=== PATIENT | male | born 1970 | race Caucasian/White ===

== ENCOUNTER 2017-02-27 14:11 | Inpatient (IN) | payer BC, OTHER ==
[~2017-02-27] VITALS: Ht 180.3 cm; Wt 130.0 kg
[2017-02-27] MEDS ORDERED: NS 1,000 ML IV ONE ×3 (16:45→23:15)
[2017-02-27 17:31] LABS: VENOUS BASE EXCESS 2.8 (-2.0-2.0); VENOUS PARTIAL PRESSURE CO2 53.4 mmHg (38.0-50.0); VENOUS PARTIAL PRESSURE O2 29.9 mmHg (30.0-50.0); VENOUS STANDARD HCO3 25.6 MEQ/L; VENOUS TOTAL CO2 31.3 MEQ/L (24.0-28.0)
[2017-02-27 17:38] LABS: BASO # 0.1 10^3/uL (0.0-0.2); BASO % 0.9 % (0.0-1.0); EOS # 0.1 10^3/uL (0.0-0.50); EOS % 1.6 % (0.0-3.0); IMMATURE GRANULOCYTE % 0.3 % (0-0); LYMPH # 3.3 10^3/uL (1.5-4.5); LYMPH % 36.2 % (24.0-44.0); MEAN CORPUSCULAR HEMOGLOBIN 29.3 pg (27.0-33.0); MEAN CORPUSCULAR HGB CONC 34.5 g/dl (32.0-36.5); MEAN CORPUSCULAR VOLUME 84.9 fl (80.0-96.0); MONO # 0.5 10^3/uL (0.0-0.8); MONO % 5.5 % (0.0-5.0); NEUTROPHILS % 55.5 % (36.0-66.0); PLATELET COUNT, AUTOMATED 294 10^3/uL (150-450); RED CELL DISTRIBUTION WIDTH 11.8 % (11.5-14.5)
[2017-02-27 17:54] LABS: OSMOLALITY SERUM 308 MOSM/KG (275-295)
[2017-02-27 17:57] LABS: ALBUMIN 3.8 GM/DL (3.2-5.2); ALBUMIN/GLOBULIN RATIO 0.83 (1.00-1.93); ALKALINE PHOSPHATASE 124 U/L (45-117); ALT/SGPT 89 U/L (12-78); ANION GAP 9 MEQ/L (8-16); AST/SGOT 39 U/L (7-37); BILIRUBIN,DIRECT 0.1 MG/DL (0.0-0.2); BILIRUBIN,TOTAL 0.7 MG/DL (0.2-1.0); BLOOD UREA NITROGEN 15 MG/DL (7-18); CARBON DIOXIDE LEVEL 29 MEQ/L (21-32); CHLORIDE LEVEL 92 MEQ/L (98-107); CREATININE FOR GFR 1.28 MG/DL (0.70-1.30); GLOMERULAR FILTRATION RATE > 60.0 (>60); MAGNESIUM LEVEL 1.9 MG/DL (1.8-2.4); POTASSIUM SERUM 4.3 MEQ/L (3.5-5.1); SODIUM LEVEL 130 MEQ/L (136-145); TOTAL PROTEIN 8.4 GM/DL (6.4-8.2)
[2017-02-27 18:12] LABS: GLUCOSE, FASTING 415 MG/DL (70-105)
[2017-02-27] MEDS ORDERED: HumuLIN R (REGULAR) INSULIN (NovoLIN R) **100U/ML** PER UNIT IV ONE (18:30)
--- NOTE | 2017-02-27 18:41 | ECGEPIP ---
Stationary ECG Study [facility] - ED Test Date: 2017-02-27 Pat Name: LOLA NAZARIO Department: Room: - Gender: M [employer] Attendant: tj : 1970 Requested By: Yi Pride Order Number: [id number] Reading MD: Alexis Avila Measurements Intervals [place] Rate: 108 P: 72 IA: 151 QRS: 54 QRSD: 84 T: 45 QT: 307 QTc: 412 Interpretive Statements SINUS TACHYCARDIA POSSIBLE LEFT ATRIAL ENLARGEMENT NO PRIORS FOR COMPARISON Electronically Signed On 02-27-2017 18:41:14 EST by Alexis Avila
[2017-02-27] MEDS ORDERED: INSULIN HUMAN REGULAR 100 UNITS in NS 99 ML IV SCH (19:56)
[2017-02-27] MEDS ORDERED: INSULIN IV RATE CHANGE DOCUMENTATION ML/HR XX SCH (20:00)
[2017-02-27 20:52] LABS: VENOUS BASE EXCESS 0.1 (-2.0-2.0); VENOUS O2 SATURATION 99.2 % (60.0-80.0); VENOUS PARTIAL PRESSURE CO2 43.3 mmHg (38.0-50.0); VENOUS PARTIAL PRESSURE O2 171.5 mmHg (30.0-50.0); VENOUS STANDARD HCO3 24.6 MEQ/L; VENOUS TOTAL CO2 26.7 MEQ/L (24.0-28.0)
[2017-02-27 21:26] LABS: ALBUMIN 3.2 GM/DL (3.2-5.2); ALBUMIN/GLOBULIN RATIO 0.84 (1.00-1.93); ALKALINE PHOSPHATASE 90 U/L (45-117); ALT/SGPT 74 U/L (12-78); ANION GAP 7 MEQ/L (8-16); AST/SGOT 36 U/L (7-37); BILIRUBIN,TOTAL 0.5 MG/DL (0.2-1.0); BLOOD UREA NITROGEN 15 MG/DL (7-18); CALCIUM LEVEL 8.5 MG/DL (8.5-10.1); CARBON DIOXIDE LEVEL 28 MEQ/L (21-32); CHLORIDE LEVEL 101 MEQ/L (98-107); CREATININE FOR GFR 1.06 MG/DL (0.70-1.30); GLOMERULAR FILTRATION RATE > 60.0 (>60); GLUCOSE, FASTING 293 MG/DL (70-105); MAGNESIUM LEVEL 1.8 MG/DL (1.8-2.4); POTASSIUM SERUM 3.9 MEQ/L (3.5-5.1); SODIUM LEVEL 136 MEQ/L (136-145)
[2017-02-28] VITALS (13 sets, daily range): BP systolic 132–178; BP diastolic 67–108
[2017-02-28] MEDS ORDERED: GLUCOSE 4 GM CHEW TABLET PO PRN (00:45)
[2017-02-28] MEDS ORDERED: GLUCAGON FOR INJ 1 MG VIAL (J1610) SC PRN (00:45)
[2017-02-28] MEDS ORDERED: DEXTROSE 50% 50 ML SYRINGE IV PRN (00:45)
[2017-02-28] MEDS ORDERED: INFLUENZA QUADRIVALENT PF VACCINE 0.5ML SYRINGE (90686) IM SCH (01:15)
--- NOTE | 2017-02-28 01:50 | HPE ---
DATE OF ADMISSION: 02/27/2017 The patient, Max Rose III, is a 47-year-old male. Patient comes in with a chief complaint of blurry vision and weakness and headache. HISTORY OF PRESENT ILLNESS: Patient notes for the past couple weeks he has been feeling lightheaded, weaker, thirsty, general feelings of not being well. However, over the weekend he says the condition has worsened to the point where he had blurry vision. Therefore, he came into the emergency department (ED) where he was found to be with an extremely high fasting glucose. The A1c is 11. Patient with newly diagnosed diabetes mellitus. REVIEW OF SYSTEMS: Patient without other acute complaints other than polyurination. ALLERGIES: Patient with allergies to PENICILLIN. Both patient's parents are type 2 diabetics as per patient. Patient is a nonsmoker, non-drinker, does not use drugs as per the patient. Patient's home medications are none as per the patient. PHYSICAL EXAMINATION: Patient is resting comfortably when I came in. Alert and oriented times three with normal affect, normal mood. Cranial nerves II-XII grossly intact. S1, S2. Good inspiratory, expiratory effort. No wheezes, rhonchi or rales. Abdomen is obese, soft, nontender to palpation. Patient with good strength in all four major extremities. ENT is normal with supple neck. Skin is warm and dry. No apparent lymphadenopathy. LABORATORY EXAMINATION: Shows CBC grossly normal. Chemistry, however, shows fasting glucose of 415, chloride 92, sodium 130. Blood gas shows elevated pCO2 of 53.4, pH is 7.362 and a low saturation of 53.0. Followup ABG shows 7.385, pCO2 43.3, pO2 of 171.5, and a saturation 99.2. Urinalysis is negative. Toxicology shows elevated beta-hydroxybutyrate of 4.73. No imaging done on patient, none needed. ASSESSMENT AND PLAN: Patient is a 47-year-old male who comes in with symptoms consistent with newly symptomatic diabetes mellitus. Patient clearly with uncontrolled glucose, high A1c. Patient meeting hyperosmolar nonketotic state. Began intravenous (IV) insulin in the emergency department (ED). Will continue. Continue treatment as necessary. Continue fluid resuscitation. Deep venous thrombosis (DVT) prophylaxis not indicated. Gastrointestinal (GI) prophylaxis not indicated. Given the patient's need for education and glucose monitoring, patient to be admitted for further observation. I first saw patient 02/27/2017.
[2017-02-28 05:38] LABS: BASO # 0.1 10^3/uL (0.0-0.2); EOS # 0.2 10^3/uL (0.0-0.50); EOS % 3.2 % (0.0-3.0); IMMATURE GRANULOCYTE % 0.3 % (0-0); LYMPH # 2.9 10^3/uL (1.5-4.5); LYMPH % 40.8 % (24.0-44.0); MEAN CORPUSCULAR HEMOGLOBIN 29.3 pg (27.0-33.0); MEAN CORPUSCULAR HGB CONC 34.6 g/dl (32.0-36.5); MEAN CORPUSCULAR VOLUME 84.8 fl (80.0-96.0); MONO # 0.4 10^3/uL (0.0-0.8); MONO % 5.5 % (0.0-5.0); NEUTROPHILS # 3.5 10^3/uL (1.8-7.7); NEUTROPHILS % 49.2 % (36.0-66.0); PLATELET COUNT, AUTOMATED 217 10^3/uL (150-450); RED CELL DISTRIBUTION WIDTH 11.8 % (11.5-14.5); WHITE BLOOD COUNT 7.1 10^3/uL (4.0-10.0)
[2017-02-28 05:59] LABS: ALBUMIN/GLOBULIN RATIO 0.79 (1.00-1.93); ALKALINE PHOSPHATASE 77 U/L (45-117); ALT/SGPT 68 U/L (12-78); ANION GAP 12 MEQ/L (8-16); AST/SGOT 34 U/L (7-37); BILIRUBIN,TOTAL 0.5 MG/DL (0.2-1.0); BLOOD UREA NITROGEN 18 MG/DL (7-18); CALCIUM LEVEL 8.5 MG/DL (8.5-10.1); CARBON DIOXIDE LEVEL 23 MEQ/L (21-32); CHLORIDE LEVEL 102 MEQ/L (98-107); CREATININE FOR GFR 1.05 MG/DL (0.70-1.30); GLOMERULAR FILTRATION RATE > 60.0 (>60); GLUCOSE, FASTING 281 MG/DL (70-105); POTASSIUM SERUM 3.6 MEQ/L (3.5-5.1); SODIUM LEVEL 137 MEQ/L (136-145); TOTAL PROTEIN 6.8 GM/DL (6.4-8.2)
[2017-02-28] MEDS ORDERED: INSULIN HUMAN REGULAR 100 UNITS in NS 99 ML IV SCH (09:00)
[2017-02-28] MEDS ORDERED: LISINOPRIL 5 MG TAB PO SCH (09:00)
[2017-02-28] MEDS: PANTOPRAZOLE 40MG TAB (PROTONIX) PO SCH (11:06)
[2017-02-28] MEDS: ACETAMINOPHEN TAB 650MG DOSE (2X325MG) PO PRN ×2 (11:06→18:01)
[2017-02-28] MEDS: metFORMIN (GLUCOPHAGE) 500 MG TAB PO SCH ×2 (11:07→20:51)
--- NOTE | 2017-02-28 11:19 | IPN ---
DATE OF SERVICE: 02/28/2017 SUBJECTIVE: The patient tells me that he is feeling better. He has some mild headache but otherwise be is not urinating as much and not as thirsty. He denies fever, chills, nausea, vomiting or abdominal pain. OBJECTIVE: Vital signs: Temperature 97.9, pulse 85, respiratory rate 16, blood pressure 134/84, oxygen saturation 95% on room air. General: He is a morbidly obese middle aged man lying in bed at a 30 degree angle. He is accompanied by his significant other. He does not appear to be in any acute distress. HEENT: Cranial nerves II-XII grossly intact. He has dry mucous membranes and elevation of CVP. Cardiovascular exam: S1, S2 regular. Respiratory exam: Clear. Abdominal exam: Grossly obese. Extremities: No clubbing, cyanosis or edema. LABORATORY STUDIES: WBC 7.1, hemoglobin 14.1, platelet count 217. Chemistry panel: Sodium 3.6, chloride 102, bicarbonate 23, BUN 18, creatinine 1.0. Fasting glucose 281. Hemoglobin A1c is 11. LFTs have returned to normal. Lipase within normal limits. Toxicology and beta hydroxybutyrate is 4.7 elevated. Urinalysis positive for protein and glucose. ASSESSMENT AND PLAN: This is a 47-year-old man with new onset type 2 diabetes. PROBLEMS: 1. New onset type 2 diabetes. Patient understands the diagnosis, his mother and father both have it. We have initiated consistent carbohydrate diet. I have placed nutrition consult and requested there is extensive complete diabetic teaching. At this time, we will discontinue the drip. He did not have an anion gap. Will place him on metformin 500 mg by mouth twice daily. We will continue to check finger sticks. Should be become uncontrolled with the metformin, could consider initiation of sliding scale insulin. However, at the time, we will simply monitor and educate and see how he does with the metformin and a consistent carbohydrate diet. If he is able to be controlled, he will likely be discharged and followup with a new primary care provider appointment that he has scheduled for next week. 2. Deep venous thrombosis (DVT) prophylaxis. Early ambulation.
[2017-02-28] MEDS: HumaLOG INSULIN (NovoLOG) PER UNIT SC SCH ×2 (12:32→17:14)
[2017-02-28] MEDS ORDERED: LISINOPRIL 5 MG TAB PO ONE (16:15)
[2017-02-28] MEDS ORDERED: HumaLOG INSULIN (NovoLOG) PER UNIT SC SCH (21:00)
[2017-02-28] MEDS ORDERED: CEPACOL LOZENGE PO PRN (22:00)
[2017-03-01 06:00] VITALS: BP 167/98
[2017-03-01 07:21] LABS: BASO # 0.1 10^3/uL (0.0-0.2); BASO % 0.9 % (0.0-1.0); EOS # 0.2 10^3/uL (0.0-0.50); EOS % 3.7 % (0.0-3.0); IMMATURE GRANULOCYTE % 0.5 % (0-0); LYMPH # 2.1 10^3/uL (1.5-4.5); LYMPH % 36.7 % (24.0-44.0); MEAN CORPUSCULAR HEMOGLOBIN 29.6 pg (27.0-33.0); MEAN CORPUSCULAR HGB CONC 34.5 g/dl (32.0-36.5); MEAN CORPUSCULAR VOLUME 85.8 fl (80.0-96.0); MONO # 0.4 10^3/uL (0.0-0.8); MONO % 6.1 % (0.0-5.0); NEUTROPHILS % 52.1 % (36.0-66.0); PLATELET COUNT, AUTOMATED 219 10^3/uL (150-450); RED CELL DISTRIBUTION WIDTH 11.9 % (11.5-14.5); WHITE BLOOD COUNT 5.7 10^3/uL (4.0-10.0)
[2017-03-01] MEDS ORDERED: LANTINJ4 SC (07:38)
[2017-03-01] MEDS ORDERED: D-CA1KIT XX (07:38)
[2017-03-01] MEDS ORDERED: GLUC500T PO (07:38)
[2017-03-01] MEDS ORDERED: LISI10TA4 PO (07:38)
[2017-03-01] MEDS ORDERED: NOVOINJ3 SC (07:40)
[2017-03-01 07:47] LABS: ALBUMIN 3.1 GM/DL (3.2-5.2); ALBUMIN/GLOBULIN RATIO 0.79 (1.00-1.93); ALKALINE PHOSPHATASE 105 U/L (45-117); ALT/SGPT 67 U/L (12-78); ANION GAP 7 MEQ/L (8-16); AST/SGOT 28 U/L (7-37); BILIRUBIN,TOTAL 0.4 MG/DL (0.2-1.0); BLOOD UREA NITROGEN 17 MG/DL (7-18); CALCIUM LEVEL 8.6 MG/DL (8.5-10.1); CARBON DIOXIDE LEVEL 27 MEQ/L (21-32); CHLORIDE LEVEL 102 MEQ/L (98-107); CREATININE FOR GFR 1.05 MG/DL (0.70-1.30); GLOMERULAR FILTRATION RATE > 60.0 (>60); GLUCOSE, FASTING 315 MG/DL (70-105); POTASSIUM SERUM 3.9 MEQ/L (3.5-5.1); SODIUM LEVEL 136 MEQ/L (136-145)
[2017-03-01] MEDS: metFORMIN (GLUCOPHAGE) 500 MG TAB PO SCH (08:30)
[2017-03-01] MEDS: PANTOPRAZOLE 40MG TAB (PROTONIX) PO SCH (08:30)
[2017-03-01] MEDS: HumaLOG INSULIN (NovoLOG) PER UNIT SC SCH (08:30)
[2017-03-01 08:31] VITALS: BP 167/98
[2017-03-01] MEDS ORDERED: LISINOPRIL 10 MG TAB PO SCH (09:00)
[2017-03-01] MEDS ORDERED: HUMA100I5 SC (12:14)
--- NOTE | 2017-03-01 16:35 | DSES ---
DATE OF ADMISSION: 02/27/2017 DATE OF DISCHARGE: 03/01/2017 DISCHARGE DIAGNOSIS: New onset diabetes. SECONDARY DIAGNOSIS: Hyperglycemia, polyuria, polydipsia, hypertension. HOSPITAL COURSE: Patient is a 47-year-old man who presented with polyuria and polydipsia who was found to have hyperglycemia and new onset type 2 diabetes which runs in his family. Both his mother and father have it. He himself has obesity and was in between doctors and was set to have a new primary care physician appointment on March 09. He was admitted to ICU for an insulin drop although he did not an anion gap. His fingersticks did quickly trend downward so he was transitioned to metformin 500 mg by mouth twice a day was not sufficient to control his fingersticks and as such he did require sliding scale insulin. Hemoglobin A1c was noted to be 11. He had a lipase within normal limits. TSH within normal limits. Protein and glucose in his urine. His syndrome did resolve with control of his blood sugar. SUBJECTIVE: This morning the patient tells me that his blurry vision has improved. He is not as thirsty. He is not having as much urine output and less urination and he feels well and would like to go home. OBJECTIVE: VITAL SIGNS: Temperature 98, pulse 196, respiratory rate 20, blood pressure 167/98, oxygen saturation 98% on room air. GENERAL: He is a morbidly obese middle aged man sleeping in bed with his . He does not appear to be in any acute distress. HEENT: Cranial nerves II through XII are grossly intact. He has moist mucous membranes and no elevation in CVP. CARDIOVASCULAR: S1, S2 regular. ABDOMEN: Bowel sounds active, obese. EXTREMITIES: No clubbing, cyanosis, or edema. LABORATORY STUDIES: WBC 5.7, hemoglobin 13.8, platelet count 219. Chemistry panel: Sodium 136, potassium 3.9, chloride 102, bicarbonate 27, BUN 17, creatinine 1.0. Liver function tests have returned to normal. No new imaging. ASSESSMENT PLAN: This is a 47-year-old male with new onset type 2 diabetes. PROBLEMS: 1. New onset type 2 diabetes. He was started on metformin 500 mg by mouth twice a day. I suspect this will be titrated up in the coming weeks through the new primary care physician appointment which is set up for 03/09/2017. I will also discharge him on Lantus and Lispro as well as a hogan diabetic kit with medical equipment including a Glucometer, strips, pricker. I did speak with the pharmacy to ensure that he will have all of this equipment provided for him. I did also speak with nursing staff yesterday and today to ensure that he received adequate diabetic teaching, nutritional diet and consistent carbohydrate diet and 2 gram sodium diet. 2. Hypertension. He was found to be hypertensive while in the hospital which is a new diagnosis for him and given that he is a newly diabetic I started him on Lisinopril 10 mg daily which did control his blood pressure. He will be discharged on this as well. 3. Deep venous thrombosis (DVT) prophylaxis. Early ambulation. DISPOSITION: The patient is being discharged home to the care of his family. He is at his functional baseline. He is to followup with his new PCP on 03/09/2017. Activity is as prior to admission. His diet a consistent carbohydrate, 2 gram sodium diet. He will return to the emergency room if his symptoms worsen. MEDICATIONS AT THE TIME OF DISCHARGE: - Lantus 10 units subcutaneous at bedtime - Lispro sliding scale before meals and bedtime - lisinopril 10 mg daily - metformin 500 mg twice a day Greater than 30 minutes on organizing disposition.
== END 2017-03-01 11:20 | disposition home or self-care (01) | DRG 638 ==
LOC: M ED 14:11 → M ED INP 19:56 → M ICU 02-28 00:33 → M MS4PR 02-28 12:45
PROVIDERS: ADMIT Internal Medicine; ATTEND Internal Medicine
DX: E11.00 Type 2 diabetes mellitus with hyperosmolarity without nonketotic hyperglycemic-hyperosmolar coma (NKHHC) (principal); Z68.41 Body mass index [BMI] 40.0-44.9, adult; E11.65 Type 2 diabetes mellitus with hyperglycemia; E66.01 Morbid (severe) obesity due to excess calories; I10 Essential (primary) hypertension; Z88.0 Allergy status to penicillin

== ENCOUNTER → 2018-04-23 | Outpatient (CLI) | payer OTHER ==
[~2018-04-23] MED LIST: D-CA1KIT XX; GLUC500T PO; HUMA100I5 SC; LANTINJ4 SC; LISI10TA4 PO; NOVOINJ3 SC
--- NOTE | 2018-04-23 18:42 | ECHO ---
DATE OF PROCEDURE: 04/23/2018 REFERRING PHYSICIAN: Dr. Kylah Pate INDICATION: Other visual disturbance, type 2 diabetes. Height 180 cm, weight 118 kg. DIMENSIONS: IVS: 1.0 LV: 5.2 LVPW: 1.0 LA: 3.2 Aorta: 3.3 IVC: 1.8 Left atrial volume index: 39 mL per meter square Mitral E wave velocity: 70 A wave: 71 E prime septal: 5.9 E prime lateral: 8.6 FINDINGS: The study is of fair technical quality corresponding to patient's body habitus. Left ventricle is normal size and normal systolic function with estimated left ventricular ejection fraction (LVEF) around 55-60%. I do not appreciate any segmental wall motion abnormalities. Right ventricle also appears normal size and systolic function. Left atrium is moderately enlarged. Right atrium was poorly visualized. Aortic valve has three leaflets and normal mobility. Mitral and tricuspid valve also appear grossly normal. Pulmonic valve was not well seen. No pericardial effusion is noted. Inferior vena cava is normal size. Aortic root and aortic arch appear normal. Abdominal aorta was not well seen. Doppler interrogation reveals no aortic stenosis or insufficiency. There is also functionally competent mitral valve. Same applies for tricuspid valve. Pulmonic valve was not well seen. Mitral inflow pattern and tissue Doppler imaging of mitral annulus reveals likely grade 1 diastolic dysfunction. CONCLUSIONS: 1. Study is of fair technical quality. 2. Normal left ventricular (LV) size and preserved LV systolic function, grade 1 diastolic dysfunction. 3. No significant valvular disease. 4. Likely normal central venous pressure. 5. Unable to estimate pulmonary artery pressure. COMMENT: Subacute bacterial endocarditis (SBE) prophylaxis is not recommended.
== END ==
LOC: M CARPUL 09:37
PROVIDERS: ATTEND Internal Medicine
DX: H53.8 Other visual disturbances (principal); E11.9 Type 2 diabetes mellitus without complications

== ENCOUNTER → 2018-12-07 | Outpatient (CLI) | payer OTHER ==
--- NOTE | 2018-12-07 16:27 | REP ---
Clinical: Right knee pain. Technique: AP, lateral, bilateral oblique and sunrise views of the right knee. Findings: Moderate tricompartmental osteoarthritic degenerative changes include subchondral sclerosis, chondrocalcinosis, osteophytosis and joint space narrowing. No acute fracture dislocation. No effusion. Impression: Moderate tricompartmental osteoarthritic degenerative changes. Electronically Signed by Darien Ibanez MD 12/07/2018 04:19 P
== END ==
LOC: M WUC 16:06
PROVIDERS: ATTEND Physician Assistant
DX: M25.561 Pain in right knee (principal); M17.11 Unilateral primary osteoarthritis, right knee

== ENCOUNTER → 2019-02-05 | Outpatient (CLI) | payer OTHER ==
--- NOTE | 2019-02-05 12:46 | REP ---
MRI RIGHT KNEE WITHOUT CONTRAST: HISTORY: Right knee osteoarthritis. Pain for 3 months. Comparison radiograph December 07, 2018. TECHNIQUE: Axial, coronal, and sagittal imaging planes utilized. T1, proton density and T2-weighted scans were obtained in the usual fashion with and without fat saturation. MRI FINDINGS: There is a large joint effusion distending the suprapatellar bursa. No discernible Wasserman's cyst is seen. There is extra-articular subcutaneous edema however about the knee circumferentially. There is evidence of suprapatellar plica both medially and laterally. Cortical and medullary bone signal intensity are normal. There is three compartment osteoarthritic spurring as seen on the radiographs. Anterior and posterior cruciate ligaments appear intact. Patellar and quadriceps tendons have an intact appearance. There is some nonarticular spurring on the patella superiorly at the quadriceps tendon insertion consistent with chronic tendinopathy. There is no evidence of medial or lateral collateral ligament disruption. No medial meniscal tear is seen. There is a complex horizontal degenerative tear in the lateral meniscus extending from anterior horn through the body to the posterior horn. There is advanced chondromalacia in the lateral compartment with large areas of full-thickness articular cartilage loss on the lateral femoral condyle and lateral tibial plateau. There is mild to moderate chondromalacia in the medial compartment but no full-thickness lesion is seen medially. There is mild to moderate chondromalacia patella centrally with partial thickness fissuring. There is some nearly full-thickness fissuring on the medial side of the femoral trochlear articular cartilage. This study is otherwise unremarkable. IMPRESSION: Three compartment osteoarthritis with advanced chondromalacia and full-thickness articular cartilage loss in the lateral compartment. There is an extensive degenerative tear of the lateral meniscus. There is a large joint effusion. Periarticular edema is seen. Electronically Signed by Jam Alvarado MD 02/05/2019 03:30 P
== END ==
LOC: M RAD 09:40
PROVIDERS: ATTEND Physician Assistant Medical
DX: M17.11 Unilateral primary osteoarthritis, right knee (principal)

== ENCOUNTER 2019-05-02 14:30 | Outpatient (RCR) | payer OTHER, SELFPAY | END 2019-05-03 | LOC: M PT 14:30 | PROVIDERS: ATTEND Physician Assistant Medical | DX: M75.42 Impingement syndrome of left shoulder (principal) ==